=== PATIENT | female | born 1995 | race American Indian/Alaskan Native ===

== ENCOUNTER 2017-07-17 15:58 | Emergency (ER) | payer MEDICAID ==
[2017-07-17] MEDS ORDERED: LIDOCAINE VISCOUS 2% MM STA (16:57)
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
[2017-07-17] MEDS ORDERED: NORCO 5/325 PO ONE (17:44)
[2017-07-17] MEDS ORDERED: ZOFRAN ODT PO ONE (17:44)
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
[2017-07-18] MEDS ORDERED: TORADOL IM ONE (00:30)
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
[2017-07-18 02:20] VITALS: BP 110/69
== END 2017-07-18 02:19 | disposition home or self-care (01) ==
LOC: ED 15:58
DX: S00.83XA Contusion of other part of head, initial encounter (principal); S00.501A Unspecified superficial injury of lip, initial encounter; Y04.8XXA Assault by other bodily force, initial encounter; Y93.89 Activity, other specified; Y92.89 Other specified places as the place of occurrence of the external cause; Y99.8 Other external cause status
CPT/HCPCS: 70355; 70486; 81025; 96372; 99284; J1885; Q0162

== ENCOUNTER 2017-10-01 21:44 | Emergency (ER) | payer MEDICAID | END 2017-10-01 23:30 | disposition left against medical advice (07) | LOC: ED 21:44 | DX: R10.9 Unspecified abdominal pain (principal); Z53.21 Procedure and treatment not carried out due to patient leaving prior to being seen by health care provider ==

== ENCOUNTER 2019-02-23 20:39 | Outpatient (CLI) | payer MEDICAID ==
[2019-02-23 21:13] VITALS: BP 112/63
== END 2019-02-23 22:18 | disposition home or self-care (01) ==
LOC: TRG 20:39
PROVIDERS: ATTEND Obstetrics & Gynecology
DX: O47.1 False labor at or after 37 completed weeks of gestation (principal); Z3A.38 38 weeks gestation of pregnancy
CPT/HCPCS: 59025